=== PATIENT | female | born 1945 | race Caucasian/White ===

== ENCOUNTER 2021-06-04 08:57 | Outpatient (CLI) | payer MEDICARE, BC, SELFPAY ==
--- NOTE | ~2021-06-04 | US_ITS ---
EXAMINATION: US art doppler w press LE BI DATE: 06/04/2021 09:47 INDICATION: Peripheral vascular disease with claudication, numbness and tingling to the lower limbs. TECHNIQUE: Segmental pressures and plethysmographic and Doppler waveforms of the brachial and lower e xtremity arteries were obtained. Patient was unable to tolerate pressure measurements in the lower li mbs above the level of the ankles COMPARISON: None. FINDINGS: Right and left brachial artery pressures of 185 mm Hg and 165 mm Hg, respectively, are concordant (no rmal difference <= 30 mmHg). The right ankle-brachial index (NATALIA) is 0.45 (normal >= 0.9-1). The right great toe-brachial index (T BI) is 0.46 (normal >= 0.6-0.8). Arterial waveforms are biphasic with brisk systolic upstrokes in the right common femoral, superficial femoral and popliteal arteries. There are broadened systolic peaks with delayed upstrokes at the right posterior tibial artery. Poor [id number] limiting assessmen t for waveform at the right dorsalis pedis artery The left NATALIA is 0.96. The left TBI is 0.72. Arterial waveforms are biphasic with brisk systolic upstr okes in the left common femoral, superficial femoral, popliteal and dorsalis pedis arteries. Poor sig [id number] in the left posterior tibial artery. IMPRESSION: 1. Arterial occlusive disease to the right lower limb with severely decreased right NATALIA and mild to m oderately decreased right TBI. 2. Minimal arterial occlusive disease to the left lower limb with borderline left NATALIA and normal left TBI. Reviewed, dictated and finalized at location A. IMPRESSION: 1. Arterial occlusive disease to the right lower limb with severely decreased r ight NATALIA and mild to moderately decreased right TBI. 2. Minimal arterial occlusive disease to the left lower limb with borderline le ft NATALIA and normal left TBI.
== END 2021-06-04 08:58 | disposition home or self-care (01) ==
LOC: ANHIMG 09:01
PROVIDERS: PCP Family Medicine; Visit Provider Family Medicine
DX: I70.201 Unspecified atherosclerosis of native arteries of extremities, right leg (principal)
CPT/HCPCS: 93923

== ENCOUNTER 2021-09-08 07:54 | Outpatient (CLI) | payer MEDICARE, BC, SELFPAY ==
--- NOTE | 2021-09-27 16:24 | WPDSLEEPSTUD ---
Sleep Study Date of Study: 09/08/21 <Sydni Oconnor, DO - Last Filed: 09/27/21 18:16> Ordering Provider: Alexy YeboahMD <Sydni Oconnor, - Last Filed: 09/27/21 18:16> Interpreting Physician: Sydni Oconnor DO <Sydni Oconnor, - Last Filed: 09/27/21 18:16> Sleep Study Type: Split Polysomnogram <Sydni Oconnor, DO - Last Filed: 09/27/21 18:16> Height: 1.63 m <Sydni Oconnor - Last Filed: 09/27/21 18:16> Weight: 102.058 kg <Sydni Oconnor DO - Last Filed: 09/27/21 18:16> Body Mass Index: 38.6 <Sydni Oconnor DO - Last Filed: 09/27/21 18:16> Neck Circumference (inches): 16 <Sydni Oconnor - Last Filed: 09/27/21 18:16> [place]: 6 <Sydni Oconnor, - Last Filed: 09/27/21 18:16> Reason for Sleep Study The patient was previously diagnosed with XIOMARA in the past but was not compliant with PAP Therapy. Patient has daytime sleepiness, unrefreshing sleep and self-reported cognitive difficulty from poor sleep. <Sydni Oconnor, DO - Last Filed: 09/27/21 18:16> Sleep History The patient is a 76-year-old female with diabetes, hypertension, hyperlipidemia, coronary artery disease with history of cardiac bypass, restless leg syndrome and previously diagnosed XIOMARA that had a Split Study ordered by her psychiatrist, Dr. Alexy Yeboah, for unrefreshing sleep, daytime hypersomnia and perceived cognitive issues due to poor sleep. The patient states that she had a sleep study done at [facility] about 15 years ago. The patient has been on carvidopa-levadopa for her RLS. She has been on methylphenidate for her narcolepsy and she was prescribed CPAP for her XIOMARA. The patient states that she occasionally awakens from sleep short of breath. She rarely awakens at night with heartburn, belching. She did not comment on her snoring. She occasionally wakes up gasping for air throughout the night. She frequently has breathing problems at night observed by others. She occasionally sweats excessively at night. She rarely notices heart palpitations or irregular heartbeats throughout the night. She constantly falls asleep during the day. She occasionally falls asleep during physical effort. She rarely falls asleep when laughing or crying. She occasionally experiences loss of muscle tone when extremely emotional. She rarely has sleep paralysis. He occasionally experiences vivid dreamlike scenes upon awakening or falling asleep. She occasionally feels afraid to go to sleep. She occasionally has thoughts racing through her mind. She frequently feels sad or depressed. She constantly has anxiety. She frequently notices parts of her body jerk. She constantly kicks during the night. She constantly experiences crawling and aching feelings in her legs as well as leg pain during the night. She frequently grinds her teeth during sleep and awakens with morning jaw pain. She is constantly bothered by pain during the day and is occasionally awakened by pain during the night. She occasionally wakes up feeling stiff in the morning with sore and achy muscles. The patient goes to bed between 9 and 10:00 p.m. on both weekdays and weekends. She can fall asleep immediately. She wakes up once per night to urinate. She wakes up between 4 and 5:00 a.m. on both weekdays and weekends. She typically gets 4-6 hours of sleep per night. She will stay in bed all day after awakening in the morning. She currently lives with her 54-year-old son. She does not consume any caffeinated beverages within 2 hours of bedtime. She does not engage in physical exercise before bedtime. She will watch television before falling asleep. She denies taking naps in the afternoon or evening. She consumes 4 cans of diet soda per day. She denies tobacco, alcohol and recreational drug use. <Sydni Oconnor, DO - Last Filed: 09/27/21 18:16> PMFSH Past Medical Hi
[2021-09-27 17:03] VITALS: BMI 38.6
== END 2021-09-09 08:21 | disposition home or self-care (01) ==
LOC: ANHCSM 07:55
PROVIDERS: PCP Family Medicine; Visit Provider Psychiatry & Neurology Psychiatry
DX: G47.33 Obstructive sleep apnea (adult) (pediatric) (principal); G25.81 Restless legs syndrome; G47.34 Idiopathic sleep related nonobstructive alveolar hypoventilation
CPT/HCPCS: 95811

== ENCOUNTER 2021-10-07 10:22 | Outpatient (CLI) | payer MEDICARE, BC, SELFPAY ==
[2021-10-07 11:44] LABS: Alanine Aminotransferase 15 U/L (4-35); Albumin Level 4.4 g/dL (3.5-5.1); Alkaline Phosphatase 72 U/L (38-126); Anion Gap 10 mmol/L (8-16); Aspartate Amino Transferase 23 U/L (14-36); Bilirubin,Total 0.6 mg/dL (0.2-1.3); Blood Urea Nitrogen 19 mg/dL (7-17); Calcium 9.4 mg/dL (8.4-10.2); Carbon Dioxide 25 mmol/L (22-30); Chloride 101 mmol/L (98-107); Estimated Glomerular Filt Rate > 60; Glucose 207 mg/dL (65-110); Potassium 3.7 mmol/L (3.4-5.0); Sodium 136 mmol/L (137-145)
[2021-10-07 11:56] LABS: Hemoglobin A1C 6.5 % (<5.7)
== END 2021-10-07 10:23 | disposition home or self-care (01) ==
PROVIDERS: PCP Family Medicine; Visit Provider Family Medicine
DX: R53.83 Other fatigue (principal); E11.9 Type 2 diabetes mellitus without complications; I10 Essential (primary) hypertension; G25.81 Restless legs syndrome
CPT/HCPCS: 36415; 80053; 82728; 83036